=== PATIENT | male | born 1970 | race Hispanic/Latino ===

== ENCOUNTER 2018-12-16 07:53 | Outpatient (CLI) | payer BC | END 2018-12-16 07:54 | disposition home or self-care (01) | LOC: LAB 07:53 ==

== ENCOUNTER 2018-12-30 08:57 | Outpatient (CLI) | payer BC | END 2018-12-30 08:58 | disposition home or self-care (01) | LOC: LAB 08:57 ==

== ENCOUNTER 2019-01-06 10:43 | Outpatient (CLI) | payer BC | END 2019-01-06 10:44 | disposition home or self-care (01) | LOC: LAB 10:43 ==